=== PATIENT | female | born 1965 | race American Indian/Alaskan Native ===

== ENCOUNTER 2017-05-19 10:05 | Day surgery (SDC) | payer OTHER ==
[2017-05-15 08:38] VITALS: BMI 49.5
[2017-05-19] MEDS ORDERED: ceFAZolin IV 1 gm in Dextrose 0 GM/0 ML BAG IVPB ONE (12:14)
[2017-05-19] MEDS ORDERED: Lidocaine 2% Inj (20ml) ONE (12:14)
[2017-05-19] MEDS ORDERED: Bupivacaine HCl 0.5% PF (10 ml) Inj ONE (12:15)
[2017-05-19] MEDS ORDERED: Lactated Ringer's 500 ML IV ONE (12:30)
[2017-05-19] MEDS ORDERED: Midazolam 2 MG/2 ML VIAL ONE ×2 (12:33→12:42)
[2017-05-19] MEDS ORDERED: Propofol 10 mg/ml Inj (20 ML) ONE (12:40)
--- NOTE | 2017-05-19 13:23 | PCM.SURG1 ---
Surgeon's Initial Post Op Note - Surgeon's Notes Surgeon: Dr. Silvio Garg, DPM Gaming Table Operator: Dr. Mary Ann Razo PGY-1 Type of Anesthesia: IV Sedation, Local Anesthesia Administered By: Dr. Ching Pre-Operative Diagnosis: left Achilles tendonitis Operative Findings: see operative report. I: 10cc 1:1 mix 2% Lidocaine plain and 0.5% Marcaine plain, 10cc 2% Lidocaine plain intra-op. M: 4-0 nylon Post-Operative Diagnosis: left Achilles tendonitis Operation Performed: percutaneous left Achilles tenotomy under ultrasound guidance Specimen/Specimens Removed: n/a Estimated Blood Loss: EBL {In ML}: 2 Blood Products Given: N/A Drains Used: No Drains Post-Op Condition: Good Date of Surgery/Procedure: 05/19/17 Time of Surgery/Procedure: 12:55
[2017-05-19] MEDS ORDERED: Oxycodone/Acetaminophen 5/325 mg Tab PO PRN ×2 (13:24)
[2017-05-19 13:39] VITALS: O2SAT 100
[2017-05-19 15:17] VITALS: BP 120/60; PULSE 67; RESP 18; TEMP 97
--- NOTE | 2017-05-22 21:15 | PCM.OP ---
Operative Report - Operative Report Date of Surgery/Procedure: 05/19/17 Time of Surgery/Procedure: 12:55 Surgeon: Dr. Silvio Garg, DPM Ore Digger: Dr. Mary Ann Razo, PGY-1 Anesthesia/Sedation: IV sedation + local Pre-Operative Diagnosis: left Achilles tendinitis Post-Operative Diagnosis: left Achilles tendinitis Indication for Surgery: The patient is a 51 year-old female with left Achilles tendinitis. The patient has exhausted conservative treatment at this time and now requests surgical intervention. The patient signed the consent after careful explanation of risks, benefits, complication and alternatives for surgical procedure. No guarantees were given nor implied. NPO status was confirmed prior to taking pt to the OR. Operative Findings: see below Procedure/Operation Description: The patient was brought to the operating room and placed on the operating room table in the prone position. After induction of IV sedation, the patient received a total of 10cc of 1:1 mix 2% Lidocaine plain and 0.5% Marcaine plain in local block fashion around the left Achilles tendon. Once local anesthesia was achieved, the left leg, ankle and foot was then prepped and draped in usual sterile manner. The attending was present during the case. A sterile sleeve was placed over the ultrasound transducer and a diagnostic ultrasound was performed. Using an #18 gauge needle and ultrasound guidance, the anatomy was identified and the diseased, calcified area of the Achilles tendon was seen at the distal aspect of the tendon near the Achilles insertion. An additional 10cc of 2% Lidocaine plain was injected to ensure adequate anesthesia due to patient movement. A #11 blade was then introduced to create a stab incision and create a tract down to the distal Achilles tendon. The TX1 handpiece was introduced. Once the tip was located in the hypoechoic lesion, the foot pedal was depressed and the area was debrided and tissue excised. A total of 2 minutes of ultrasonic energy was delivered. An additional stab incision was made with an #11 blade approximately 4 cm proximal to the initial incision and another tract was made down to the Achilles tendon. Once again, the TX1 handpiece was utilized to deliver ultrasonic energy and debride and excise calcified, diseased tissue surrounding the Achilles tendon. Following the procedure, simple sutures of 4-0 nylon were used to close the skin at both proximal and distal stab incision sites. The surgical sites were dressed with betadine soaked gauze and an JAEL bandage was applied to the left foot. Estimated Blood Loss: 2cc Complications: none Discharge & Condition: The patient tolerated the anesthesia and procedure well and was escorted to the recovery room with vital signs stable and neurovascular status intact to the left foot. This patient will follow up with Dr. Garg next week.
== END 2017-05-19 15:19 | disposition home or self-care (01) ==
LOC: C.SDS 10:05
PROVIDERS: ATTEND Podiatrist Foot & Ankle Surgery
DX: M76.62 Achilles tendinitis, left leg (principal)
CPT/HCPCS: 27606; 97116; 97162; G8978; G8979; J1885; J2250; J2704; J3010; J7120